=== PATIENT | male | born 2000 | race Caucasian/White ===

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

== ENCOUNTER 2021-08-10 20:17 | Emergency (ER) | payer OTHER ==
[~2021-08-10] VITALS: Ht 185.4 cm; Wt 175.0 kg
[2021-08-10] MEDS ORDERED: IBUP80TA PO (20:26)
[2021-08-10] MEDS ORDERED: TIZA2CAP6 PO (20:26)
[2021-08-10] MEDS ORDERED: HYDR-3713 PO (20:26)
[2021-08-10] MEDS ORDERED: ASPI81TA26 PO (20:26)
[2021-08-10] MEDS ORDERED: LEXA1TAB2 PO (20:26)
[2021-08-10] MEDS ORDERED: NOXI1TAB PO (20:26)
[2021-08-10] MEDS ORDERED: CELE1CAP9 PO (20:26)
[2021-08-10] MEDS ORDERED: OMEP-173 PO (20:26)
[2021-08-10] MEDS ORDERED: TOPI50TA9 PO (20:26)
[2021-08-10] MEDS ORDERED: LEVOTAB10 PO (20:26)
[2021-08-10 22:47] LABS: BASO # 0.1 10^3/uL (0.0-0.2); BASO % 0.7 % (0.0-1.0); EOS # 0.4 10^3/uL (0.0-0.5); EOS % 2.7 % (0.0-3.0); HEMATOCRIT 46.5 % (42.0-52.0); HEMOGLOBIN 15.1 g/dl (13.5-17.5); LYMPH % 24.9 % (24.0-44.0); MEAN CORPUSCULAR HEMOGLOBIN 26.5 pg (27.0-33.0); MEAN CORPUSCULAR HGB CONC 32.5 g/dl (32.0-36.5); MEAN CORPUSCULAR VOLUME 81.7 fl (80.0-96.0); MONO # 0.9 10^3/uL (0.0-0.8); MONO % 5.7 % (2.0-8.0); NEUTROPHILS # 10.4 10^3/uL (1.5-8.5); NEUTROPHILS % 65.6 % (36.0-66.0); PLATELET COUNT, AUTOMATED 398 10^3/uL (150-450); RED BLOOD COUNT 5.69 10^6/uL (4.30-6.10); WHITE BLOOD COUNT 15.9 10^3/uL (4.0-10.0)
[2021-08-10 23:16] LABS: CK-MB VALUE MASS < 1.0 NG/ML (<3.6); CPK CREATINE PHOSPHOKINASE 135 U/L (39-308); MB/CK RELATIVE INDEX 0.74 (< OR =4)
[2021-08-10 23:35] LABS: ALBUMIN 3.5 GM/DL (3.2-5.2); ALT/SGPT 27 U/L (12-78); BILIRUBIN,DIRECT < 0.1 MG/DL (0.0-0.2); BILIRUBIN,TOTAL 0.3 MG/DL (0.2-1.0); BLOOD UREA NITROGEN 10 MG/DL (7-18); CALCIUM LEVEL 9.5 MG/DL (8.5-10.1); CARBON DIOXIDE LEVEL 32 MEQ/L (21-32); CHLORIDE LEVEL 106 MEQ/L (98-107); CREATININE FOR GFR 1.01 MG/DL (0.70-1.30); GLOMERULAR FILTRATION RATE > 60.0 (>60); GLUCOSE, FASTING 92 MG/DL (70-100); LIPASE 179 U/L (73-393); NT-PRO BNP 13 PG/ML (<125); POTASSIUM SERUM 4.1 MEQ/L (3.5-5.1); SODIUM LEVEL 142 MEQ/L (136-145); TOTAL PROTEIN 7.3 GM/DL (6.4-8.2)
[2021-08-11] VITALS: BP 151/89
== END 2021-08-11 00:13 | disposition home or self-care (01) ==
LOC: M ED 20:17
DX: R07.9 Chest pain, unspecified (principal); R00.0 Tachycardia, unspecified; K21.9 Gastro-esophageal reflux disease without esophagitis; F17.210 Nicotine dependence, cigarettes, uncomplicated; Z79.899 Other long term (current) drug therapy; Z79.82 Long term (current) use of aspirin